=== PATIENT | female | born 1990 | race Caucasian/White ===

== ENCOUNTER 2018-08-08 15:53 | Emergency (ER) | payer SELFPAY ==
[~2018-08-08] VITALS: Ht 162.6 cm; Wt 61.2 kg
--- OUTSIDE RECORDS SUMMARY | 2018-08-08 15:59 | XMS REPORT ---
Author Author [facility] Medical Staff Organization [facility] Address [address], [place] [address] Phone [phone] Summary purpose TRANSITION OF CARE AUTO GENERATION Chief Complaint and Reason for Visit No authorized Reason for Visit (Admitting Diagnosis) is available for this visit. Problem list No authorized problems tracked for continuity of care are available for this visit. Encounters No authorized problems tracked for encounter diagnoses are available for this visit. Medications No medications recorded for this patient visit Allergies, adverse reactions, alerts Allergen Category Ingredient Status Reaction Severity Onset No known drug allergies No known drug allergies No known drug allergies Confirmed or Verified Immunizations No immunizations recorded for this patient visit Relevant diagnostic tests and/or laboratory data RESULTS Radiology Results [id number]:00 Chest X-Ray - 2 View PACs Image DATE OF EXAM: May 21 2015 RAD 0300-CHEST XRAY 2 VIEW : RADIOLOGY REPORT DATE OF SERVICE: 05/21/15 HISTORY: Shortness of air, cough, fever CHEST 2 VIEWS 1318 HOURS The lungs are clear. Heart size and pulmonary vessels are normal. There are no hilar or mediastinal abnormalities. IMPRESSION: Negative chest. MD ABIDA Patel/ms05/21/2015 13:40:05/21/2015 13:48:36 cc:Dr. Obed Foss family doctor This document has been electronically Signed by: On: DATE OF EXAM: May 21 2015 RAD 0300-CHEST XRAY 2 VIEW : RADIOLOGY REPORT DATE OF SERVICE: 05/21/15 HISTORY: Shortness of air, cough, fever CHEST 2 VIEWS 1318 HOURS The lungs are clear. Heart size and pulmonary vessels are normal. There are no hilar or mediastinal abnormalities. IMPRESSION: Negative chest. MD ABIDA Patel/ms05/21/2015 13:40:05/21/2015 13:48:36 cc:Dr. Obed Foss family doctor This document has been electronically Signed by: SONNY GOLDEN On: May 21 20155:15P Result Amended on 2015-05-21 at 17:15:41. Previous status was SD. History of procedures No procedures recorded for this patient visit. Functional status Functional Status Finding Observation Time Abdomen Appearance flat :10 Abdomen soft 53-67-551134:10 Jama no 74-54-130327:10 Urination normal 92-89-858124:10 Quality sym/unlabored :10 Cough non-productive :10 Secretions no :10 Breath Sounds RUL clear 37-25-592122:10 Breath Sounds RML clear :10 Breath Sounds RLL clear :10 Breath Sounds KARI clear :10 Breath Sounds LLL clear 60-58-879588:10 Airway natural :10 Chest Tube no :10 Oxygen no :25 Temp >100.4 no :10 Temp <96.8 no :10 Chills with rigors no :10 HR > 90bpm no :10 Respirations > 20 no :10 Systolic <90 no :10 headache stiff neck no :10 Rapid Resp no :10 Nursing Note Vs obtained. Pt stable to ambulate off black with script in hand. :25 Vital signs Type Value Date Respiration Rate 20breaths per minute : Pulse 66beats per minute : Oxygen Saturation 98% :25 BP Systolic 104mmHg :25 BP Diastolic 69mmHg :25 Temperature 97.0F :25 Height 64inches :05 Weight 128LB :05 Social history Type Value Smoking Status CURRENT EVERY DAY SMOKER Treatment Plan No treatment plan text is available for this visit. Hospital discharge instructions Dismissal Condition good Disposition on DC home DC Inst/Educ Give yes Med/Side Effects Rev yes
--- OUTSIDE RECORDS SUMMARY | 2018-08-08 15:59 | XMS REPORT ---
Author Author [facility] Staff [facility] Address [address] [place], [place] [address] Phone [phone] Summary purpose TRANSITION OF CARE AUTO GENERATION Chief Complaint and Reason for Visit Admit Diagnosis 1 COUGH Problem list No authorized problems tracked for [...] tests and/or laboratory data RESULTS Radiology Results [id number]:00 Chest X-Ray - 2 View PACs Image DATE OF EXAM: May 21 2015 RAD 0300-CHEST XRAY 2 VIEW : RADIOLOGY REPORT DATE OF SERVICE: 05/21/15 HISTORY: Shortness of air, cough, fever CHEST 2 VIEWS 1318 HOURS The lungs are clear. Heart size and pulmonary vessels are normal. There are no hilar or mediastinal abnormalities. IMPRESSION: Negative chest. MD ABIDA Patel/nv05/21/2015 13:40:05/21/2015 13:48:36 cc:Dr. Obed Foss family doctor [...] mediastinal abnormalities. IMPRESSION: Negative chest. MD ABIDA Patel/nv05/21/2015 13:40:05/21/2015 13:48:36 cc:Dr. Obed Foss family doctor This document has been electronically Signed by: SONNY GOLDEN On: May 21 20155:15P Result Amended on 2015-05-21 at 17:15:41. Previous status was [place]. History of procedures Procedure Code Code Type Description Date Performed Performing Physician 89734 CPT-4 CHEST X-RAY 05-21-2015 GLENIS NGUYEN 09828 CPT-4 EMERGENCY DEPT VISIT 05-21-2015 GLENIS NGUYEN 25206 CPT-4 EMERGENCY DEPT VISIT 05-21-2015 GLENIS NGUYEN Functional status Functional Status Finding Observation Time Abdomen Appearance flat 91-70-435738:10 Abdomen soft 68-22-114401:10 Jama no 66-00-436386:10 Urination normal 00-63-867936:10 Quality sym/unlabored 36-78-558487:10 Cough non-productive 89-64-776003:10 Secretions no 76-05-955858:10 Breath Sounds RUL clear 62-76-369390:10 Breath Sounds RML clear 75-41-477488:10 Breath Sounds RLL clear 90-60-369533:10 Breath Sounds KARI clear 28-30-701923:10 Breath Sounds LLL clear 59-77-157464:10 Airway natural 87-98-477140:10 Chest Tube no 34-60-215500:10 Oxygen no 35-52-467216:25 Temp >100.4 no :10 Temp <96.8 no :10 Chills with rigors no 81-52-974753:10 HR > 90bpm no 92-58-338862:10 Respirations > 20 no :10 Systolic <90 no :10 headache stiff neck no 08-30-961892:10 Rapid Resp no 92-46-618184:10 Nursing Note Vs obtained. Pt stable to ambulate off black with script in hand. 44-64-624094:25 Vital signs Type Value Date Respiration Rate 20breaths per minute : Pulse 66beats per minute :25 Oxygen Saturation 98% :25 BP Systolic 104mmHg 53-20-749774:25 BP Diastolic 69mmHg 65-38-383011:25 Temperature 97.0F 71-54-670759:25 Height 64inches 49-39-102103:05 Weight 128LB 39-36-505681:05 Social history Type Value Smoking Status CURRENT EVERY DAY SMOKER Treatment Plan No treatment plan text is available for this visit. Hospital discharge instructions Dismissal Condition good Disposition on DC home DC Inst/Educ Give yes Med/Side Effects Rev yes
--- OUTSIDE RECORDS SUMMARY | 2018-08-08 16:00 | XMS REPORT | Clinical Summary ---
Author Author Admin, E Organization [employer] Address Unknown Phone Unavailable Allergies, Adverse Reactions, Alerts Allergy Name Reaction Description Start Date Severity Status Provider No Known Allergies Monae Fofana MA Conditions or Problems Problem Name Problem Code Onset Date Status Entry Date Provider Comment Standard Description Annotate PELVIC PAIN, ACUTE 789.09 Active Helena Davis MD PhD Abdominal pain, other specified site; multiple sites V22.2 Active Helena Davis MD PhD state, incidental Bronchitis 490 Active Josie Cardona APRN Bronchitis, not specified as acute or chronic Medication List Medication Instructions Start Date Stop Date Generic Name NDC Status Provider Patient Instruction AZITHROMYCIN 250 MG TABS 2 po qd x 1 day, then 1 po qd x 4 days AZITHROMYCIN 38940007994 Active Josie Cardona APRN Active EQL VITAMIN C 500 MG ORAL TABS 1 tab qd ASCORBIC ACID 29203681921 Active Josie Cardona APRN Active CALCIUM 500 + D TABS 1 tab qd. CALCIUM CARBONATE-VITAMIN D TABS 35788799477 Active Josie Cardona APRN Active CHILDRENS CHEWABLE MULTI VITS CHEW 2 daily PEDIATRIC MULTIPLE VIT-C-FA 84186172850 No Longer Active Josie Cardona APRN Active CHILDRENS CHEWABLE MULTI VITS CHEW 2 daily CHILDRENS CHEWABLE MULTI VITS CHEW PEDIATRIC MULTIPLE VIT-C-FA Inactive Vital Signs Date Name Value Unit Range Description blood pressure, diastolic - 8462-4 61 mm[Hg] BP mcmillan blood pressure, systolic - 8480-6 115 mm[Hg] BP sys pulse rate E&M - 8867-4 93 /min Heart rate temperature E&M 98.9 [degF] Body temperature weight E&M - 3141-9 138 [lb_av] Weight Measured Encounters Code Encounter Date Provider Facility CPT-30881 Level 3 Est. Patient 11:18:59 CDT Josie Cardona APRN [facility] CPT-95784 Level 2 New Patient 15:19:20 CDT Helena Davis MD PhD [facility] -[facility]
--- OUTSIDE RECORDS SUMMARY | 2018-08-08 16:00 | XMS REPORT | Clinical Summary ---
Author Author Admin[employer] Organization [facility] Address Unknown Phone Unavailable Allergies, Adverse Reactions, [...] 1 po qd x 4 days AZITHROMYCIN 75270626940 No Longer Active Josie Cardona APRN Active EQL VITAMIN C 500 MG ORAL TABS 1 tab qd ASCORBIC ACID 48462483227 Active Josie Cardona APRN Active CALCIUM 500 + D TABS 1 tab qd. CALCIUM CARBONATE-VITAMIN D TABS 39911667888 Active Josie Cardona APRN Active CHILDRENS CHEWABLE MULTI VITS CHEW 2 daily PEDIATRIC MULTIPLE VIT-C-FA 06803697204 No Longer Active Jihamiltonina Eliasl BOOK RETAILER Active CHILDRENS CHEWABLE MULTI VITS CHEW 2 daily CHILDRENS CHEWABLE MULTI VITS CHEW PEDIATRIC MULTIPLE VIT-C-FA Inactive AZITHROMYCIN 250 MG TABS 2 po qd x 1 day, then 1 po qd x 4 days AZITHROMYCIN 250 MG TABS 0216598 AZITHROMYCIN Inactive Vital Signs Date Name Value Unit Range Description blood pressure, diastolic - 8462-4 61 mm[Hg] BP mcmillan blood pressure, systolic - 8480-6 115 mm[Hg] BP sys pulse rate E&M - 8867-4 93 /min Heart rate temperature E&M 98.9 [degF] Body temperature weight E&M - 3141-9 138 [lb_av] Weight Measured Encounters Code Encounter Date Provider Facility CPT-36855 Level 3 Est. Patient 11:18:59 CDT Josie Cardona APRN [facility] CPT-67410 Level 2 New Patient 15:19:20 CDT Helena Davis MD PhD [facility] -[facility]
--- OUTSIDE RECORDS SUMMARY | 2018-08-08 16:00 | XMS REPORT ---
Author Author Divya Fountain Organization [facility] Address [address] [place], [place] [address] Care Team Providers Care Nursing Specialist Name Role Phone Divya Fountain PCP Unavailable Allergies and Adverse Reactions Name Reaction Notes NO KNOWN DRUG ALLERGIES Plan of Treatment Not available. Medications Name Start Date Expiration Date SIG Comments NataFort 60 mg iron-1 mg oral tablet 12/05/2009 10/31/2010 take 1 tablet by oral route once daily for 30 days Flagyl 250 mg oral tablet 05/30/2010 06/06/2010 take 1 tablet by oral route 3 times a day for 7 days Diflucan 150 mg oral tablet 05/30/2010 05/31/2010 take 1 tablet (150 mg) by oral route once promethazine 12.5 mg oral tablet 06/05/2010 06/15/2010 take 1 tablet by oral route every 4 to 6 hours for 10 days PRN nausea estradiol 1 mg oral tablet 10/23/2010 11/02/2010 take 1 tablet (1 mg) by oral route once daily for 10 days Premarin 1.25 mg oral tablet 11/19/2010 11/29/2010 take 1 tablet by oral route daily for 10 days doxycycline hyclate 100 mg oral tablet 12/09/2010 12/23/2010 take 1 tablet ( 100 mg) by oral route 2 times per day for 14 days Cipro 500 mg oral tablet 08/16/2014 08/23/2014 take 1 tablet (500 mg) by oral route every 12 hours for 7 days Discontinued Name Start Date Discontinued Date SIG Comments Sprintec (28) 0.25-35 mg-mcg oral tablet 01/07/2011 04/21/2011 take 1 tablet by oral route once daily for 28 days promethazine 25 mg oral tablet 11/25/2011 01/09/2016 Take 1/2 to 1 tablet every 4 to 6 hours prn Medrol (Miah) 4 mg oral tablets,dose pack 08/16/2014 01/09/2016 take as directed Problem List Not available. Vital Signs Date Time BP-Sys(mm[Hg] BP-Melinda(mm[Hg]) HR(bpm) RR(rpm) Temp WT HT HC BMI BSA BMI Percentile O2 Sat(%) 01/09/2016 3:24:00 PM 114 mmHg 72 mmHg 88 bpm 18 rpm 135 lbs 63 in 23.91 kg/m2 1.65 m2 98 % 08/16/2014 5:58:00 PM 118 mmHg 66 mmHg 63 bpm 16 rpm 98.6 F 125.5 lbs 63 in 22.2311 kg/m 1.5907 m 100 % 04/21/2011 4:06:00 PM 100 mmHg 62 mmHg 61 bpm 98.6 F 129.5 lbs 63 in 22.94 kg/m2 1.62 m2 0 % 01/07/2011 1:34:00 PM 120 mmHg 66 mmHg 97 bpm 97.7 F 129.5 lbs 10/23/2010 1:48:00 PM 111 mmHg 65 mmHg 69 bpm 97.9 F 139.5 lbs 09/09/2010 10:52:00 AM 105 mmHg 66 mmHg 48 bpm 97.4 F 150 lbs 63 in 26.571 kg/m 1.7391 m 85.8 % 08/26/2010 10:47:00 AM 113 mmHg 70 mmHg 67 bpm 97.8 F 151 lbs 03/08/2010 9:17:00 AM 118 mmHg 70 mmHg 74 bpm 16 rpm 98.3 F 164 lbs 63.5 in 28.5953 kg/m 1.8256 m 91.6 % 02/07/2010 9:21:00 AM 116 mmHg 73 mmHg 80 bpm 18 rpm 98.4 F 163 lbs 01/03/2010 9:46:00 AM 118 mmHg 78 mmHg 162.5 lbs 12/10/2009 11:12:00 AM 110 mmHg 70 mmHg 80 bpm 162 lbs 12/05/2009 10:04:00 AM 110 mmHg 72 mmHg 71 bpm 99.2 F 164.125 lbs 63 in 29.0731 kg/m 1.8191 m 92.7 % Social History Name Description Comments Alcohol Use - Occasional Regular Exercise Tobacco Former smoker Quit 04-17-11 History of Procedures Date Ordered Description Order Status 01/09/2016 12:00 AM TB INTRADERMAL TEST Reviewed 09/25/2011 12:00 AM GLUCOSE TEST Reviewed 09/25/2011 12:00 AM COMPLETE CBC W/AUTO DIFF WBC Reviewed 09/25/2011 12:00 AM Type and screen Reviewed 11/12/2011 12:00 AM CULTURE OTHR SPECIMN AEROBIC Returned 12/05/2009 12:00 AM OBSTETRIC PANEL Reviewed 12/05/2009 12:00 AM TRANSVAGINAL US NON-OB Reviewed 12/10/2009 12:00 AM HIV-1ANTIBODY Reviewed 01/03/2010 12:00 AM URINALYSIS AUTO W/SCOPE Reviewed 02/07/2010 12:00 AM URINE CULTURE/COLONY COUNT Reviewed 02/07/2010 12:00 AM URINALYSIS NONAUTO W/SCOPE Reviewed 03/08/2010 12:00 AM HEPB VACC PED/ADOL 3 DOSE IM Reviewed 03/08/2010 12:00 AM IMMUNIZATION ADMIN Reviewed 04/25/2010 12:00 AM GLUCOSE TEST Reviewed 04/25/2010 12:00 AM Type and screen Reviewed 04/25/2010 12:00 AM COMPLETE CBC W/AUTO DIFF WBC Reviewed 04/25/2010 12:00 AM ASSAY OF FIBRONECTIN Reviewed 04/30/2010 12:00 AM GLUCOSE TOLERANCE TEST (GTT) Reviewed 06/12/2010 12:00 AM CULTURE OTHR SPECIMN AEROBIC Reviewed 08/26/2010 12:00 AM CYTOPATH C/V MANUAL Reviewed 08/26/2010 12:00 AM SPECIMEN HANDLING OFFICE-LAB Reviewed 09/09/2010 12:00 AM INSERT INTRAUTERINE DEVICE Reviewed 09/09/2010 12:00 AM Mirena Reviewed 01/07/2011 12:00 AM ASSAY THYROID STIM HORMONE Reviewed 01/07/2011 12:00 AM REMOVE INTRAUTERINE DEVICE Reviewed 04/21/2011 12:00 AM CYTOPATH C/V THIN LAYER Reviewed 04/21/2011 12:00 AM SPECIMEN HANDLING OFFICE-LAB Reviewed 04/21/2011 12:00 AM N.GONORRHOEAE DNA AMP PROB Reviewed 04/21/2011 12:00 AM CHLAMYDIA CULTURE Reviewed 04/21/2011 12:00 AM OBSTETRIC PANEL Reviewed 04/21/2011 12:00 AM HIV-1ANTIBODY Reviewed 04/21/2011 12:00 AM URINALYSIS AUTO W/SCOPE Reviewed 04/21/2011 12:00 AM TRANSVAGINAL US OBSTETRIC Reviewed 04/21/2011 12:00 AM URINE TEST Reviewed Results Summary Data and Description Results 12/05/2009 12:28 PM PLT 264 %LYMP 22.60 %WBC 9.4 %MONO 6.0 %%NEUT 70.10 %#MONO 0.56 MCV 83.0 fLRDW CV 14.0 %%EOS 1.0 %HCT 39.50 %#BASO 0.03 MCH 29.50 pg#EOS 0.09 MCHC 35.40 g/dLRBC 4.74 #NEUT 6.57 #LYMP 2.12 %BASO 0.30 %HGB 14.0 g/dLMPV 9.70 fLRUBELLA 2.0 IU/mL 01/03/2010 10:22 AM COLOR YELLOW APPEARANCE CLEAR SPEC GRAV >=1.030 pH 6.0 PROTEIN TRACE GLUCOSE 100 KETONE NEGATIVE BILIRUBIN NEGATIVE BLOOD MODERATE NITRITE NEGATIVE LEUK SCREEN NEGATIVE CASTS/LPF NEGATIVE CRYSTALS NEGATIVE MUCOUS THRDS FEW BACTERIA NEGATIVE EPITH CELLS FEW SQUAMOUS TRICHOMONAS NEGATIVE YEAST NEGATIVE 02/07/2010 4:40 PM COLOR YELLOW APPEARANCE HAZY SPEC GRAV 1.025 pH 5.5 PROTEIN NEGATIVE GLUCOSE 100 KETONE NEGATIVE BILIRUBIN NEGATIVE BLOOD SMALL NITRITE NEGATIVE LEUK SCREEN NEGATIVE CASTS/LPF NEGATIVE CRYSTALS 1+ CALCIUM OX MUCOUS THRDS 1+ BACTERIA NEGATIVE EPITH CELLS FEW SQUAMOUS TRICHOMONAS NEGATIVE YEAST NEGATIVE 04/25/2010 4:50 PM WBC 11.5 RBC 3.84 HGB 11.30 g/dLHCT 33.20 %MCV 87.0 fLMCH 29.40 pgMCHC 34.0 g/dLRDW CV 13.10 %MPV 10.60 fLPLT 231 %NEUT 75.30 %%LYMP 17.60 %%MONO 6.30 %%EOS 0.60 %%BASO 0.20 %#NEUT 8.67 #LYMP 2.03 #MONO 0.73 #EOS 0.07 #BASO 0.02 06/04/2010 6:40 PM COLOR YELLOW APPEARANCE HAZY SPEC GRAV >=1.030 pH 6.0 PROTEIN 30 GLUCOSE 250 KETONE NEGATIVE BILIRUBIN NEGATIVE BLOOD MODERATE NITRITE NEGATIVE LEUK SCREEN NEGATIVE CASTS/LPF NEGATIVE CRYSTALS NEGATIVE MUCOUS THRDS 1+ BACTERIA FEW EPITH CELLS 1+ SQUAMOUS TRICHOMONAS NEGATIVE YEAST FEW BUDDING WBC 11.5 RBC 3.45 HGB 9.60 g/dLHCT 29.30 %MCV 85.0 fLMCH 27.80 pgMCHC 32.80 g/dLRDW CV 13.20 %MPV 10.60 fLPLT 182 %NEUT 77.0 %%LYMP 14.60 %% MONO 6.70 %%EOS 1.60 %%BASO 0.10 %#NEUT 8.88 #LYMP 1.68 #MONO 0.77 #EOS 0.18 # BASO 0.01 GLUCOSE 77.0 mg/dLSODIUM 136.0 mmol/LPOTASSIUM 4.0 mmol/LCHLORIDE 106.0 mmol/LCO2 22.0 mmol/LBUN 5.0 mg/dLCREATININE 0.60 mg/dLSGOT/AST 11.0 IU/ LSGPT/ALT < 6 IU/LALK PHOS 103.0 IU/LTOTAL PROTEIN 5.90 g/dLALBUMIN 3.10 g/ dLTOTAL BILI 0.20 mg/dLCALCIUM 8.60 mg/dLeGFR >60 mL/min/1.73 m2 01/07/2011 2:25 PM TSH 0.570 uIU/mL 04/21/2011 5:05 PM COLOR YELLOW APPEARANCE CLEAR SPEC GRAV >=1.030 pH 6.0 PROTEIN NEGATIVE GLUCOSE NEGATIVE KETONE NEGATIVE BILIRUBIN NEGATIVE BLOOD MODERATE NITRITE NEGATIVE LEUK SCREEN NEGATIVE CASTS/LPF NEGATIVE CRYSTALS NEGATIVE MUCOUS THRDS NEGATIVE BACTERIA NEGATIVE EPITH CELLS FEW SQUAMOUS TRICHOMONAS NEGATIVE YEAST NEGATIVE WBC 8.3 RBC 4.50 HGB 13.0 g/dLHCT 37.90 % MCV 84.0 fLMCH 28.90 pgMCHC 34.30 g/dLRDW CV 13.60 %MPV 10.40 fLPLT 283 %NEUT 63.60 %%LYMP 28.70 %%MONO 5.80 %%EOS 1.70 %%BASO 0.20 %#NEUT 5.26 #LYMP 2.38 # MONO 0.48 #EOS 0.14 #BASO 0.02 RUBELLA 6.0 IU/mL 09/25/2011 3:20 PM WBC 13.9 RDW CV 14.20 %MPV 9.90 fLPLT 207 %NEUT 74.20 %% LYMP 18.10 %%MONO 5.80 %%EOS 1.70 %%BASO 0.20 %#NEUT 10.30 #LYMP 2.52 #MONO 0.80 #EOS 0.24 #BASO 0.03 EOS 2.0 %RBC 3.65 HGB 10.50 g/dLHCT 31.70 %MCV 87.0 fLMCH 28.80 pgMCHC 33.10 g/dL 12/08/2011 6:55 AM WBC 10.8 RBC 3.83 HGB 9.80 g/dLHCT 31.60 %MCV 83.0 fLMCH 25.60 pgMCHC 31.0 g/dLRDW CV 15.0 %MPV 10.20 fLPLT 265 %NEUT 68.90 %%LYMP 23.30 %%MONO 7.0 %%EOS 0.60 %%BASO 0.20 %#NEUT 7.44 #LYMP 2.51 #MONO 0.76 #EOS 0.06 # BASO 0.02 12/09/2011 6:47 AM WBC 12.1 RBC 3.28 HGB 8.50 g/dLHCT 27.10 %MCV 83.0 fLMCH 25.90 pgMCHC 31.40 g/dLRDW CV 14.80 %MPV 10.70 fLPLT 255 History Of Immunizations Name Date Admin Mfg Name Mfg Code Trade Name Lot# Route Inj Vis Given Vis Pub CVX HepB 03/08/2010 [employer] MSD Recombivax Peds [id number] Intramuscular Right Deltoid 03/08/2010 05/05/2008 999 History of Past Illness Name Date of Onset Comments Headache Histoy of migraines Dec 05 2009 10:24AM Hyperemesis Gravidarum, Mild, Before 22nd Week Dec 05 2009 10:10AM Other specified maternal complications of affecting fetus or Dec 05 2009 10:10AM , First Normal Dec 10 2009 9:10AM Hyperemesis Gravidarum, Mild, Before 22nd Week Dec 10 2009 9:10AM Other specified maternal complications of affecting fetus or Dec 10 2009 9:10AM General Medical Exam, Adult Dec 10 2009 10:14AM Jan 03 2010 9:46AM , First Normal Jan 03 2010 10:19AM , First Normal Jan 03 2010 1:56PM Feb 07 2010 9:24AM , Undelivered Feb 07 2010 10:46AM Mar 07 2010 3:37PM General Medical Exam, School/Work/etc Mar 08 2010 9:22AM HEP B Mar 08 2010 9:22AM Apr 03 2010 11:12AM , First Normal Apr 25 2010 3:46PM Threatened Premature Labor/Antepartum Apr 25 2010 4:24PM Abnormal Glucose Apr 30 2010 10:46AM Group B Strep Screening, Jun 12 2010 6:11PM , First Normal Jun 12 2010 6:11PM Post- Follow-Up Aug 26 2010 10:49AM IUD insertion Sep 09 2010 5:46PM IUD Check/Removal/Management/Reinsertion Oct 23 2010 1:49PM Weight Loss Jan 07 2011 1:35PM Metrorrhagia Jan 07 2011 1:35PM IUD removal Jan 07 2011 2:16PM test confirmed positive Apr 21 2011 4:09PM , First Normal Sep 25 2011 2:40PM Group B Strep Screening, Nov 12 2011 3:30PM Sinusitis Aug 16 2014 6:02PM Encounter for occupational health examination Jan 09 2016 3:25PM Payers Insurance Name Company Name Plan Name Plan Number Policy Number Policy Group Number Start Date Occ Med Occupational Medicine [id number] N/A Zenon Melendez [facility] [id number] N/A [facility] PMRV PHYS/DS PMRV PHYS DS N/A Occ Med Occupational Medicine [id number] N/A [place] [employer] [place] [employer] Prog [id number] N/A [employer] Medicare A Test Medicare A [id number] N/A History of Encounters Visit Date Visit Type Provider 01/09/2016 Office visit Divya Fountain WATER INSPECTOR 08/16/2014 Office visit Magnus Friend WATER INSPECTOR 12/08/2011 [facility] Daniele Costa MD 12/03/2011 Office visit Daniele Costa MD 11/26/2011 Office visit Daniele Costa MD 11/19/2011 Office visit Daniele Costa MD 11/12/2011 Office visit Daniele Costa MD 11/05/2011 Office visit Daniele Costa MD 10/20/2011 Office visit Daniele Costa MD 10/09/2011 Office visit Daniele Costa MD 09/25/2011 Office visit Daniele Costa MD 09/04/2011 Office visit Daniele Costa MD 05/05/2011 Office visit Daniele Costa MD 05/05/2011 Office visit Daniele Costa MD 04/21/2011 Office visit Daniele Costa MD 01/07/2011 Office visit Daniele Costa MD 10/23/2010 Office visit Daniele Costa MD 09/09/2010 Office visit Daniele Costa MD 08/26/2010 Office visit Daniele Costa MD 07/14/2010 [facility] Daniele Costa MD 07/11/2010 Office visit Daniele Costa MD 07/04/2010 Office visit Daniele Costa MD 06/25/2010 Office visit Daniele Costa MD 06/20/2010 Office visit Daniele Costa MD 06/12/2010 Office visit Daniele Costa MD 06/05/2010 Office visit Daniele Costa MD 06/04/2010 [facility] Daniele Costa MD 05/30/2010 Office visit Daniele Costa MD 05/28/2010 Office visit Daniele Costa MD 05/20/2010 [facility] Daniele Costa MD 05/09/2010 Office visit Daniele Cotsa MD 04/25/2010 Office visit Daniele Costa MD 04/03/2010 Office visit Daniele Costa MD 03/08/2010 Office visit Faith Alvarado MD 03/07/2010 Office visit Daniele Costa MD 02/07/2010 Office visit Daniele Costa MD 01/03/2010 Office visit Daniele Costa MD 12/10/2009 Office visit Duke Gonzalez PA-C 12/05/2009 Office visit Daniele Costa MD 07/09/2009 Office visit Duke Gonzalez PA-C 05/22/2009 Office visit LESLIE LIPSCOMB
--- OUTSIDE RECORDS SUMMARY | 2018-08-08 16:00 | XMS REPORT | Clinical Summary ---
Author Author Admin, E Organization [employer] Address Unknown Phone Unavailable Allergies, Adverse Reactions, [...] 1 po qd x 4 days AZITHROMYCIN 90373971523 No Longer Active Josie Cardona APRN Active EQL VITAMIN C 500 MG ORAL TABS 1 tab qd ASCORBIC ACID 45548929285 Active Josie Cardona APRN Active CALCIUM 500 + D TABS 1 tab qd. CALCIUM CARBONATE-VITAMIN D TABS 83664834821 Active Josie Cardona APRN Active CHILDRENS CHEWABLE MULTI VITS CHEW 2 daily PEDIATRIC MULTIPLE VIT-C-FA 22034421615 No Longer Active Jipat Griffinl SPORTS TEACHER Active CHILDRENS CHEWABLE MULTI VITS CHEW 2 daily CHILDRENS CHEWABLE MULTI VITS CHEW PEDIATRIC MULTIPLE VIT-C-FA Inactive AZITHROMYCIN 250 MG TABS 2 po qd x 1 day, then 1 po qd x 4 days AZITHROMYCIN 250 MG TABS 0601063 AZITHROMYCIN Inactive Vital Signs Date Name Value Unit Range Description blood pressure, diastolic - 8462-4 61 mm[Hg] BP mcmillan blood pressure, systolic - 8480-6 115 mm[Hg] BP sys pulse rate E&M - 8867-4 93 /min Heart rate temperature E&M 98.9 [degF] Body temperature weight E&M - 3141-9 138 [lb_av] Weight Measured Encounters Code Encounter Date Provider Facility CPT-07960 Level 3 Est. Patient 11:18:59 CDT Josie Cardona APRN [facility] CPT-30888 Level 2 New Patient 15:19:20 CDT Helena Davis MD PhD [facility]
--- OUTSIDE RECORDS SUMMARY | 2018-08-08 16:01 | XMS REPORT | Continuity of Care Document ---
Demographics x Preferred Language Unknown Marital Status Unknown Scientologist Affiliation Unknown Race Unknown Ethnic Group Unknown Author Author [facility] Organization [facility] Address Unknown Phone Unavailable Allergies Active Description Code Type Severity Reaction Onset Reported/Identified Relationship to Patient Clinical Status Yes No known drug allergies [id number] ND N/A N/A Confirmed or Verified Medications There is no data. Problems There is no data. Procedures There is no data. Results There is no data. Encounters ACCT No. Visit Date/Time Discharge Status Pt. Type Provider Facility Loc./Unit Complaint [id number] 05/21/2015 11:55:00 05/21/2015 13:30:00 DIS Emergency GLENIS NGUYEN [facility] EMR [id number] 07/10/2014 15:30:00 07/10/2014 16:10:00 DIS Emergency CITLALI LEACH [facility] EMR [id number] 12/03/2017 14:21:01 ACT Unknown [id number] 08/16/2014 18:18:19 08/16/2014 23:59:59 CLS Outpatient Magnus Friend
--- OUTSIDE RECORDS SUMMARY | 2018-08-08 16:01 | XMS REPORT | Clinical Summary ---
Author Author Admin, [employer] Organization [facility] Address Unknown Phone Unavailable Allergies, Adverse Reactions, [...] 1 po qd x 4 days AZITHROMYCIN [id number] No Longer Active Josie Cardona APRN Active EQL VITAMIN C 500 MG ORAL TABS 1 tab qd ASCORBIC ACID 05729602422 Active Josie Cardona APRN Active CALCIUM 500 + D TABS 1 tab qd. CALCIUM CARBONATE-VITAMIN D TABS 95514443783 Active Josie Cardona APRN Active CHILDRENS CHEWABLE MULTI VITS CHEW 2 daily PEDIATRIC MULTIPLE VIT-C-FA 92974259426 No Longer Active Jipat Griffinl [employer] Active CHILDRENS CHEWABLE MULTI VITS CHEW 2 daily CHILDRENS CHEWABLE MULTI VITS CHEW PEDIATRIC MULTIPLE VIT-C-FA Inactive AZITHROMYCIN 250 MG TABS 2 po qd x 1 day, then 1 po qd x 4 days AZITHROMYCIN 250 MG TABS [id number] AZITHROMYCIN Inactive Vital Signs Date Name Value Unit Range Description blood pressure, diastolic - 8462-4 61 mm[Hg] BP mcmillan blood pressure, systolic - 8480-6 115 mm[Hg] BP sys pulse rate E&M - 8867-4 93 /min Heart rate temperature E&M 98.9 [degF] Body temperature weight E&M - 3141-9 138 [lb_av] Weight Measured Encounters Code Encounter Date Provider Facility CPT-01489 Level 3 Est. Patient 11:18:59 CDT Josie Cardona APRN [facility] CPT-92588 Level 2 New Patient 15:19:20 CDT Helena Davis MD PhD [facility] -[facility]
--- OUTSIDE RECORDS SUMMARY | 2018-08-08 16:01 | XMS REPORT | Clinical Summary ---
Author Author Admin, [employer] Organization [facility] Address Unknown Phone Unavailable Allergies, Adverse Reactions, [...] 1 po qd x 4 days AZITHROMYCIN 82399881444 Active Josie Cardona APRN Active EQL VITAMIN C 500 MG ORAL TABS 1 tab qd ASCORBIC ACID 79570984317 Active Josie Cardona APRN Active CALCIUM 500 + D TABS 1 tab qd. CALCIUM CARBONATE-VITAMIN D TABS 36898963926 Active Josie Cardona APRN Active CHILDRENS CHEWABLE MULTI VITS CHEW 2 daily PEDIATRIC MULTIPLE VIT-C-FA 27670460522 No Longer Active Josie Cardona APRN Active [...] Measured Encounters Code Encounter Date Provider Facility CPT-40099 Level 3 Est. Patient 11:18:59 CDT Josie Cardona APRN [facility] CPT-60327 Level 2 New Patient 15:19:20 CDT Helena Davis MD PhD [facility] -[facility]
--- OUTSIDE RECORDS SUMMARY | 2018-08-08 16:01 | XMS REPORT | Clinical Summary ---
Author Author Admin, E Organization [employer] Address Unknown Phone Unavailable Allergies, Adverse Reactions, Alerts Allergy Name Reaction Description Start Date Severity Status Provider No Known Allergies Mnoae Fofana MA Conditions or Problems Problem Name [...] 1 po qd x 4 days AZITHROMYCIN 88818190940 Active Josie Cardona APRN Active EQL VITAMIN C 500 MG ORAL TABS 1 tab qd ASCORBIC ACID 18931104543 Active Josie Cardona APRN Active CALCIUM 500 + D TABS 1 tab qd. CALCIUM CARBONATE-VITAMIN D TABS 46817256599 Active Josie Cardona APRN Active CHILDRENS CHEWABLE MULTI VITS CHEW 2 daily PEDIATRIC MULTIPLE VIT-C-FA 64595747021 No Longer Active Josie Cardona APRN Active [...] Measured Encounters Code Encounter Date Provider Facility CPT-89305 Level 3 Est. Patient 11:18:59 CDT Josie Cardona APRN [facility] CPT-42098 Level 2 New Patient 15:19:20 CDT Helena Davis MD PhD [facility] -[facility]
[2018-08-08] MEDS ORDERED: DEXAMETHASONE 10 MG/ML (DECADRON) 1 ML VIAL IM ONE (17:30)
[2018-08-08] MEDS ORDERED: RX-AMOXICILLIN 500 MG CAP #3 PPK PO STA (18:02)
--- NOTE | 2018-08-08 18:02 | ED EENT ---
History of Present Illness General Chief Complaint: Oral/Throat Problems Stated Complaint: SORE THROAT,VOMITTING Nursing Triage Note: PT PRESENTS TO ER WITH COMPLAINT OF SORE THROAT. STATES SHE WENT TO [facility] THE OTHER DAY AND WAS SENT HOME. STATES SYMPTOMS HAVE WORSENED. History of Present Illness Date Seen by Provider: Aug 08, 2018 Time Seen by Provider: 16:30 Initial Comments 28-year-old female reports for sore throat and ear pain. Symptoms began 2-3 days ago. She has been doing salt water gargles and taking Tylenol and ibuprofen. Reports significant pain when trying to swallow food or liquids. Location: throat Prearrival Treatment: over the counter meds Associated Symptoms: facial pain/swelling, fever, poor fluid intake, poor solids intake, sore throat; No voice change Allergies and Home Medications Allergies Coded Allergies: No Known Drug Allergies (Unverified , 08/08/18) Home Medications Amoxicillin 500 Mg Capsule, 500 MG PO Q8H Prescribed by: TANNER SORTO on 08/08/18 [id number] Patient Home Medication List Home Medication List Reviewed: Yes Review of Systems Review of Systems Constitutional: no symptoms reported, see HPI All Other Systems Reviewed Negative Unless Noted: Yes Past Tanvpmk-Hpcajr-Kcfmet Hx Past Med/Social Hx: Reviewed Nursing Past Med/Soc Hx Patient Social History Alcohol Use: Denies Use Recreational Drug Use: No Smoking Status: Current Everyday Smoker Type Used: Cigarettes Recent Foreign Travel: No Contact w/Someone Who Travel: No Recent Infectious Disease Expo: No Recent Hopitalizations: No Immunizations Up To Date Tetanus Booster (TDap): Unknown PED Vaccines UTD: Yes Seasonal Allergies Seasonal Allergies: No Past Medical History Surgeries: No Respiratory: No Cardiac: No Neurological: No Genitourinary: No Gastrointestinal: No Musculoskeletal: No Endocrine: No HEENT: No Cancer: No Psychosocial: No Integumentary: No Blood Disorders: No Physical Exam Vital Signs Vital Signs - First Documented 08/08/18 16:05 Temp 99.3 Pulse 86 Resp 20 B/P (MAP) 119/63 (81) Pulse Ox 99 O2 Delivery Room Air Height, Weight, BMI Height: 5'4.00" Weight: 135lbs. oz. 61.435645bu; BMI Method:Stated General Appearance: WD/WN, no apparent distress Eyes: bilateral eye normal inspection, bilateral eye PERRL, bilateral eye EOMI Ears: right ear TM dull; bilateral ear auricle normal, bilateral ear canal normal Nose: normal inspection; No active bleeding, No discharge Mouth/Throat: tonsillar exudate, tonsillar swelling (right tonsil 3+, left tonsil 2+. Airway patent with no narrowing. No tonsillar abscess appreciated); No uvula swelling, No voice changes Neck: full range of motion, supple, normal inspection, lymphadenopathy (R), lymphadenopathy (L) Cardiovascular: normal peripheral pulses, regular rate, rhythm, no murmur Respiratory: chest non-tender, lungs clear, normal breath sounds, no respiratory distress, no accessory muscle use Gastrointestinal: normal bowel sounds, non tender, soft Neurologic/Psychiatric: no motor/sensory deficits, alert, normal mood/affect, oriented x 3 Skin: normal color, warm/dry, other (skin turgor and capillary refill less than 2 seconds.) Progress/Results/Core Measures Results/Orders Lab Results Laboratory Tests Test 08/08/18 16:09 08/08/18 17:26 Range/Units Group A Streptococcus Screen NEGATIVE NEGATIVE Monoscreen NEGATIVE NEGATIVE Micro Results Microbiology 08/08/18 Influenza Types A,B Antigen (MAYRA) - Final, Complete My Orders Orders - TANNER SORTO Rapid Strep A Screen (08/08/18 16:20) Monotest (08/08/18 17:17) Influenza A And B Antigens (08/08/18 17:17) Dexamethasone Injection (Decadron Inject (08/08/18 17:30) Tramadol Tablet (Ultram Tablet) (08/08/18 17:17) Rx-Amoxicillin Capsule (Rx-Polymox Capsu (08/08/18 18:02) Medications Given in ED Current Medications Medications Dose Ordered Sig/Nilda Route Start Time Stop Time Status Last Admin Dose Admin Dexamethasone Sodium Phosphate 10 mg ONCE ONCE IM 08/08/18 17:30 08/08/18 17:31 DC 08/08/18 17:58 10 MG Vital Signs/I&O 08/08/18 08/08/18 16:05 18:16 Temp 99.3 99.3 Pulse 86 86 Resp 20 20 B/P (MAP) 119/63 (81) 119/63 (81) Pulse Ox 99 99 O2 Delivery Room Air Blood Pressure Mean: 81 Progress Progress Note : Time: 16:30 Progress Note Initial evaluation completed, recommended strep screen, flu screen, and mono test. 1700 strep negative. We'll give Decadron 10 mg IM and tramadol 50 mg by mouth for pain. 1745 mono, flu, and strep all negative. Discharge instructions and return precautions reviewed with patient. Departure Impression Primary Impression: Pharyngitis Qualified Codes: J02.9 - Acute pharyngitis, unspecified Disposition: HOME, SELF-CARE Condition: Improved Departure-Patient Inst. Decision time for Depature: 18:00 Patient Instructions: Strep Throat (DC) Add. Discharge Instructions: All discharge instructions reviewed with patient and/or family. Voiced understanding. Salt water gargles every 2 hours while awake. Continue to alternate between ibuprofen 600 mg and Tylenol 650 mg every 4 hours. Take Antibiotic as prescribed. Follow-up with your primary care provider if symptoms are not improving or worsen. Return to emergency department for fever greater than 101 not relieved by Tylenol or ibuprofen, inability to take any oral or solid foods, changes in voice, difficulty breathing or new problems. Scripts Amoxicillin (Amoxicillin) 500 Mg Capsule 500 MG PO Q8H, #21 CAP 0 Refills Prov: TANNER SORTO 08/08/18 Work/School Note: Work Release Form Date Seen in the Emergency Department: Aug 08, 2018 Return to Work: Aug 10, 2018 Restrictions: No Restrictions TANNER SORTO Aug 08, 2018 18:02
[2018-08-08] MEDS ORDERED: AMOX500C2 PO (18:06)
[2018-08-08 18:16] VITALS: BP 119/63
== END 2018-08-08 18:15 | disposition home or self-care (01) ==
LOC: ER 15:55
DX: J02.9 Acute pharyngitis, unspecified (principal); F17.210 Nicotine dependence, cigarettes, uncomplicated
CPT/HCPCS: 36415; 86308; 87430; 87804